=== PATIENT | female | born 1955 ===

== ENCOUNTER 2024-08-04 05:05 | Day surgery (SDC) | payer OTHER ==
[2024-07-28 10:39] LABS: HEMOGLOBIN 13.6 g/dL (12.0-15.00); MEAN CELL VOLUME 87.7 fL (80.00-100.00); MEAN CORPUSCULAR HGB CONC 33.1 g/dl (32.0-36.0); PLATELET COUNT 188 K/uL (150-450); RED BLOOD COUNT 4.68 M/uL (4.00-6.00); RED CELL DISTRIBUTION WIDTH 14.2 % (11.5-14.5)
[2024-07-28 10:42] LABS: PH,URINE 6.5 (5.0-8.0); URINE BILIRRUBIN Negative (NEGATIVE); URINE BLOOD Negative; URINE COLOR Yellow; URINE GLUCOSE Negative (NEGATIVE); URINE KETONE Negative (NEGATIVE); URINE LEUKOCYTE Negative; URINE NITRATE Negative; URINE PROTEIN Negative (NEGATIVE); URINE UROBILINOGEN 0.2 E.U./dl
[2024-07-28 10:43] LABS: URINE BACTERIA 686.5 uL (0.0-1933); URINE EPITHELIAL CELLS 9.3 uL (0.0-38.8); URINE WBC 3.3 uL (0.0-23.2)
[2024-07-28 11:21] LABS: INR 1.01; PARTIAL THROMBOPLASTIN TIME 27.1 SECONDS (22.0-34.0)
[2024-07-28 11:34] LABS: URINE APPEARANCE CLEAR; URINE CAST 0.14 uL (0.0-1.40); URINE RBC 1.9 uL (0.0-20.8)
[2024-07-28 11:43] LABS: ALBUMIN 3.4 gm/dL (3.4-5.0); CALCIUM 9.3 mg/dL (8.5-10.1); CREATININE SERUM 0.7 mg/dL (0.55-1.02); GFR 83.46; POTASSIUM 4.72 mEq/L (3.5-5.1)
[2024-07-28 11:50] VITALS: BP 170/84
[~2024-08-04] VITALS: Ht 149.9 cm; Wt 115.7 kg
[~2024-08-04 05:05] MED LIST: ACID REDUCER20 M1 PO; GLIMEPIRIDE1 MG; TENORMIN25 MG PO
[2024-08-04] MEDS ORDERED: EPINEPHRINE HCL/PF 1 MG/ML AMPUL ONE (07:16)
[2024-08-04] MEDS ORDERED: POVIDONE-IODINE SCRUB 118 ML BOTT TOP ONE (07:16)
[2024-08-04] MEDS ORDERED: LIDOCAINE HCL 1%/EPINEPHRINE 20ML VIAL IJ ONE (07:16)
[2024-08-04] MEDS ORDERED: POVIDONE-IODINE 118 ML BOTT TOP ONE (07:16)
[2024-08-04] MEDS ORDERED: CLINDAMYCIN PHOSPHATE 150 MG/ML (600mg) ONE (07:25)
[2024-08-04] MEDS ORDERED: DEXAMETHASONE SODIUM PHOSPHATE 4 MG/ML VIAL ONE (08:42)
[2024-08-04] MEDS ORDERED: CLEOCIN HCL300 MG PO (08:54)
[2024-08-04] MEDS ORDERED: CIPROFLOXACIN2.5 ML OTIC (08:55)
== END 2024-08-04 11:40 | disposition home or self-care (01) ==
LOC: CIR.AMB 05:05
PROVIDERS: ATTEND Otolaryngology Otology & Neurotology
DX: H80.82 Other otosclerosis, left ear (principal); H90.12 Conductive hearing loss, unilateral, left ear, with unrestricted hearing on the contralateral side; E11.9 Type 2 diabetes mellitus without complications; I10 Essential (primary) hypertension; E03.8 Other specified hypothyroidism; Z88.6 Allergy status to analgesic agent; Z88.0 Allergy status to penicillin